=== PATIENT | female | born 2000 | race Caucasian/White ===

== ENCOUNTER 2022-08-07 11:49 | Emergency (ER) | payer BC, SELFPAY ==
[2022-08-07 12:05] VITALS: BP 121/69; PULSE 75; RESP 16; TEMP 36.8; O2SAT 99
--- NOTE | 2022-08-07 12:07 | ED.HEATRA ---
HPI - Head Injury General Chief complaint: Head Injury Stated complaint: fall,Head Injury Time Seen by Provider: 08/07/22 12:08 Source: patient and RN notes reviewed Mode of arrival: ambulatory Limitations: no limitations History of Present Illness HPI Narrative: 22-year-old female presents to the [facility] post fall this morning. Patient states that she fell down her stairs, at least 8 steps, after tripping over her dog. Has a history of a seizure disorder but denies having a seizure. States that she struck the back of her head and is having left-sided eye pain, blurriness. States that she is just seeing linear lights. Denies any midline tenderness. Denies loss of consciousness. Also reports right-sided rib pain and left wrist pain. Occurred approximately 630 this morning. States that she was unable to drive herself to the ER because of her change in vision. Related Data Home Medications Medication Instructions Recorded Confirmed No Home Medications 08/07/22 08/07/22 Allergies Allergy/AdvReac Type Severity Reaction Status Date / Time No Known Allergies Allergy Verified 08/07/22 12:12 Review of Systems Review of Systems: All systems reviewed & are unremarkable except as noted in HPI and below Constitutional: Constitutional: Reports no additional constitutional complaints, Denies chills and Denies fever(s) Eyes: Eyes: Reports as per HPI, Reports change in vision (left eye. States that she is seeing liner lights. ) and Reports photophobia ENT: Reports system reviewed and no additional complaints, except as documented Cardiovascular: Cardiovascular: Reports no additional cardiovascular complaints Respiratory: Respiratory: Reports no additional respiratory complaints Gastrointestinal: Gastrointestinal: Reports no additional gastrointestinal complaints Musculoskeletal: Musculoskeletal: Reports as per HPI (Right ribs) and Reports arthralgias (Left wrist) Integumentary/Breasts: Skin/Breast: Reports system reviewed and no additional complaints, except as docu Neurologic: Reports as per HPI, Denies dizziness, Reports headache(s), Denies focal weakness, Denies numbness and Denies weakness Psychiatric: Psychiatric: Reports no additional psychiatric complaints Allergic/Immunologic: Allergic/Immunologic: Reports no additional allergic/immunologic complaints PMFSH Past Medical History Medical History (Updated 08/07/22 @ 12:27 by Janet Jimenez APRN) Seizure Surgical History Surgical History (Updated 08/07/22 @ 12:23 by Janet Jimenez APRN) History of ear surgery Social History Social History (Updated 08/07/22 @ 12:32 by Janet Jimenez APRN) Living arrangements: with family Gender identity (if verbalized by the patient): Female Comments At the time of my signature, I reviewed and agree with the nursing past medical, surgical, social, and family history. There is no relevant family history pertinent to the patient complaint. Exam Const: General: healthy appearing, no acute distress, alert and well nourished Nutritional Appearance: well nourished Orientation/consciousness: patient oriented x3 Limitations: no limitations HENMT: Head: normal to inspection Ears: external ears normal Face/Nose/Sinus: Normal external nose present and Normal nares present Face and sinus: normal facial exam and sinuses nontender Mouth: Yes Normal oral and palatal mucosa present, Yes lip normal and Yes moist mucous membranes Throat: posterior oropharynx normal and uvula midline Eyes: General: appearance normal, both eyes and all related structures Alignment and Position: alignment normal and position normal Periorbital: periorbital findings normal Eyelids: eyelids normal Conjunctivae: conjunctivae normal Pupils: Equal, round and reactive pupils present EOM: EOMs intact bilaterally Neck: Neck: normal visual inspection, no lymphadenopathy and no meningeal signs Chest: Chest palpation & inspection: normal i
--- NOTE | 2022-08-07 12:37 | PC.NURSE ---
1226 inpatient c[address]orb to place in collar and was done. left keys at [facility] for spouse to pick up attendant, pt had called spouse prior to transfer and spouse will get keys and car.
--- NOTE | 2022-08-07 15:53 | PC.NURSE ---
1502, spouse came to [facility] to get car keys and to take car.
== END 2022-08-07 12:26 | disposition short-term general hospital (02) ==
PROVIDERS: Emergency Provider Nurse Practitioner; PCP Obstetrics & Gynecology
DX: S09.90XA Unspecified injury of head, initial encounter (principal); W10.9XXA Fall (on) (from) unspecified stairs and steps, initial encounter; W10.8XXA Fall (on) (from) other stairs and steps, initial encounter
CPT/HCPCS: 99205; G0463; L0140

== ENCOUNTER 2022-08-07 12:40 | Emergency (ER) | payer BC, SELFPAY ==
--- NOTE | ~2022-08-07 | CT_ITS ---
EXAMINATION: CT brain wo con DATE: 08/07/2022 13:32 INDICATION: Head injury. TECHNIQUE: Computed tomography (CT) of the head was performed without intravenous contrast. The mA wa s adjusted according to patient size. Iterative reconstruction technique was employed. The dose-lengt h product was 605.33 mGy-cm. COMPARISON: None FINDINGS: There is no intracranial hemorrhage, acute infarction, or abnormal intracranial mass lesion . The ventricles are normal in size. The paranasal sinuses are clear. The mastoid air cells are dayanna l. The orbits are normal. IMPRESSION: 1. Normal brain. Reviewed, dictated and finalized at location A. IMPRESSION: 1. Normal brain.
--- NOTE | ~2022-08-07 | XR_ITS ---
EXAMINATION: XR wrist LT min 3V DATE: 08/07/2022 13:42 INDICATION: Left wrist injury and pain. TECHNIQUE: 4 views of left wrist were obtained. COMPARISON: None. FINDINGS: Bone alignment is normal. No fracture. Joint spaces are well maintained. IMPRESSION: 1. Normal left wrist. Reviewed, dictated and finalized at location A. IMPRESSION: 1. Normal left wrist.
--- NOTE | ~2022-08-07 | XR_ITS ---
EXAMINATION: XR chest 2V DATE: 08/07/2022 13:42 INDICATION: Right scapular pain. Fall. TECHNIQUE: Frontal and lateral views of the chest were obtained. COMPARISON: None. FINDINGS: The chest demonstrates clear lungs without pneumonia, pleural effusion, or pneumothorax. Th e heart size is normal. IMPRESSION: 1. No acute cardiopulmonary disease. Reviewed, dictated and finalized at location A.
--- NOTE | ~2022-08-07 | CT_ITS ---
EXAMINATION: CT cervical spine wo con DATE: 08/07/2022 13:33 INDICATION: Head injury. TECHNIQUE: Computed tomography (CT) of the cervical spine was performed without intravenous contrast. Automated exposure control and iterative reconstruction technique were employed. The dose-length pro duct was 154.73 mGy-cm. COMPARISON: None FINDINGS: There is mild emphysema. Partially visualized is extensive dental disease. There is 4 degre es dextrocurvature of cervical spine. There is kyphosis of cervical spine. Vertebral body heights and intervertebral disc heights are normal. At C7-T1, there is mild bilateral facet joint osteoarthritis . No neural foraminal stenosis or central canal stenosis. IMPRESSION: 1. No fracture. 2. Extensive dental disease. Reviewed, dictated and finalized at location A.
[2022-08-07 12:39] VITALS: BP 116/83; PULSE 74; RESP 18; TEMP 36.8; O2SAT 99
[2022-08-07 13:01] VITALS: O2SAT 100
[2022-08-07] MEDS: ONDANSETRON INJ 4 MG/2 ML VIAL IV PUSH ×2 (13:11→14:43)
--- NOTE | 2022-08-07 13:27 | ED.HEATRA ---
HPI - Head Injury General Chief complaint: Head Injury <WARD Matthew Last Filed: 08/07/22 19:55> Stated complaint: head injury <WARD Matthew Last Filed: 08/07/22 19:55> Time Seen by Provider: 08/07/22 12:41 <WARD Matthew Last Filed: 08/07/22 19:55> Source: patient <WARD Matthew Last Filed: 08/07/22 19:55> Mode of arrival: ambulatory <WARD Matthew Last Filed: 08/07/22 19:55> Limitations: no limitations <WARD Matthew Last Filed: 08/07/22 19:55> History of Present Illness HPI Narrative: Patient is a 22-year-old female who presents to the ED with report of fall, head injury. Patient reports she tripped while letting her dog out this morning and fell down her porch steps, approximately 8 steps. She hit her head, but denied LOC. She was able to ambulate after the fall, but complains of pain to her head, right shoulder, left wrist. She presented to urgent care and was referred here for further imaging and evaluation. Patient reported nausea initially after incident, but denies any currently. Denies vomiting. Reports photophobia with headache, but denies dizziness, lightheadedness, vision changes, weakness, abdominal pain, chest pain, difficulty breathing. <WARD Matthew Last Filed: 08/07/22 19:55> Related Data Allergies/Adverse reactions: Allergies Allergy/AdvReac Type Severity Reaction Status Date / Time Penicillins Allergy Rash Verified 08/07/22 13:22 <WARD Matthew Last Filed: 08/07/22 19:55> Review of Systems Review of Systems: CONSTITUTIONAL: Denies fever, chills, or sweats. EYES: Reports photophobia. Denies visual changes. CARDIOVASCULAR: Denies chest pain. RESPIRATORY: Denies dyspnea. GASTROINTESTINAL: Reports nausea. Denies abdominal pain, vomiting, or diarrhea. MUSCULOSKELETAL: Reports pain to L wrist, R shoulder. NEUROLOGIC: Reports HI, REYES. Denies LOC, dizziness, lightheadedness, numbness, or weakness. <Latha Oreilly PA-C - Last Filed: 08/07/22 19:55> All systems reviewed & are unremarkable except as noted in HPI and below <Latha Oreilly PA-C - Last Filed: 08/07/22 19:55> [facility] Past Medical History Medical History: Medical History (Updated 08/08/22 @ 00:00 by Simón Luz) History of seizure disorder <Latha Oreilly PA-C - Last Filed: 08/07/22 19:55> Surgical History Surgical History: Surgical History History of ear surgery <Latha Oreilly PA-C - Last Filed: 08/07/22 19:55> Social History Social History: Social History (Updated 08/07/22 @ 13:29 by Latha Oreilly PA-C) Smoking status: Never smoker Gender identity (if verbalized by the patient): Female <Latha Oreilly PA-C - Last Filed: 08/07/22 19:55> Exam Narrative: GENERAL: Well appearing, thin, non-toxic, in no acute distress. HEAD: Normocephalic, atraumatic. EYES: PERRL/EOMI, conjunctivae clear bilaterally. No nystagmus. NECK: Supple. No adenopathy, no masses. C-collar in place. No significant midline cervical spinal tenderness. RESPIRATORY: Airway patent, respirations nonlabored. Clear to auscultation bilaterally, no rales, rhonchi, wheezing. CARDIOVASCULAR: Regular rate and rhythm without murmurs, rubs, or gallops. Peripheral pulses 2+ and equal bilaterally. ABDOMINAL: Soft, nontender, nondistended, no hepatosplenomegaly. Normoactive BS. MUSCULOSKELETAL: Moves all extremities. Strength/ROM intact without gross deformities. No midline thoracic or lumbar spinal tenderness. Mild tenderness palpation over the distal ulna of left wrist. No distal radius tenderness. No anatomical snuffbox tenderness. No significant swelling to wrist. No significant tenderness to anterior right shoulder, minimal tenderness posteriorly, more over trapezius/upper scapular ana
[2022-08-07] MEDS: MORPHINE SULFATE (*CRX) 4 MG/ML INJ IV PUSH (14:46)
[2022-08-07] MEDS: KETOROLAC 30 MG/ML VIAL (*BKC) IV PUSH (14:47)
[2022-08-07] MEDS: METOCLOPRAMIDE HCL INJ 10 MG/2 ML VIAL IV PUSH (16:44)
[2022-08-07 17:00] VITALS: BP 103/65; PULSE 70; RESP 16; O2SAT 99
== END 2022-08-07 17:00 | disposition home or self-care (01) ==
PROVIDERS: Emergency Provider Emergency Medicine; PCP Obstetrics & Gynecology
DX: S06.0X0A Concussion without loss of consciousness, initial encounter (principal); S69.92XA Unspecified injury of left wrist, hand and finger(s), initial encounter; K05.6 Periodontal disease, unspecified; W10.9XXA Fall (on) (from) unspecified stairs and steps, initial encounter
CPT/HCPCS: 70450; 71046; 72125; 73110; 96374; 96375; 96376; 99284; J0131; J1885; J2270; J2405; J2765